=== PATIENT | female | born 1935 | race Caucasian/White ===

== ENCOUNTER 2017-04-07 10:05 | Inpatient (IN) | payer MEDICARE, BC ==
[2017-04-04 17:27] VITALS: BMI 24.6
[2017-04-07] VITALS (26 sets, daily range): BP systolic 99–151; BP diastolic 54–76; PULSE 64–83; RESP 14–22; Ht 162.6 cm; Wt 65.1 kg
[~2017-04-07] VITALS: Ht 162.6 cm; Wt 65.1 kg
--- NOTE | 2017-04-07 09:21 | HPN ---
Date/Time of Note Date/Time of Note DATE: 04/07/17 TIME: 09:21 Interval H&P Admission Note Pt. seen H&P reviewed: No system changes DENISE CHANEL MD Apr 07, 2017 09:21
[~2017-04-07 10:05] MED LIST: ATOR20TA65 PO; BENHCT2012 PO; BUPIVACAINE 0.5% (SDV) 30 ML, morphine SULFATE (PF) 8 MG, EPINEPHrine 0.3 MG, KETOROLAC... IRR SCH; CEFAZOLIN 2 GM/50 ML (PMX) 50 ML IVPB ONE; DEXAMETHASONE 1 MG TAB PO ONE; EST42.5C VAG; ESTR10TA VAGINAL; GABA300S PO; GABAPENTIN 300 MG CAP PO ONE; LIPA1CAP4 PO; NITR50CA38 PO; PANT40TA4 PO; TRANEXAMIC ACID 1,000 MG in SOD CHLORIDE 0.9% 100 ML IVPB ONE; ZOLP5TAB PO; traMADol 50 MG TAB PO ONE
[2017-04-07] MEDS ORDERED: DEXAMETHASONE 4 MG/ML 1 ML INJ ONE (10:34)
[2017-04-07] MEDS ORDERED: PROPOFOL 20 ML ONE (10:34)
[2017-04-07] MEDS ORDERED: MIDAZOLAM 1 MG/ML 2 ML INJ ONE (10:34)
[2017-04-07] MEDS ORDERED: GLYCOPYRROLATE 0.4 MG INJ ONE (10:34)
[2017-04-07] MEDS ORDERED: NEOSTIGMINE 3 MG/3 ML SYRINGE ONE (10:34)
[2017-04-07] MEDS ORDERED: CEFAZOLIN 1 GM INJ ONE (10:34)
[2017-04-07] MEDS ORDERED: ROCURONIUM 50 MG INJ ONE (10:34)
[2017-04-07] MEDS ORDERED: ONDANSETRON 4 MG INJ ONE (10:34)
[2017-04-07] MEDS ORDERED: FENTAnyl 50 MCG/ML VIAL ONE (10:34)
[2017-04-07] MEDS ORDERED: ROPIVACAINE 0.5 % 30 ML VIAL ONE (10:37)
[2017-04-07] MEDS ORDERED: GABA300C16 PO (11:02)
[2017-04-07] MEDS ORDERED: FER325 PO (11:03)
[2017-04-07] MEDS ORDERED: MULTI PO (11:03)
[2017-04-07] MEDS ORDERED: DOXY100T20 PO (11:06)
[2017-04-07] MEDS ORDERED: ASCO500C7 PO (11:07)
[2017-04-07] MEDS ORDERED: CALC1TAB79 PO (11:08)
[2017-04-07] MEDS ORDERED: CA CHLORIDE 10% 10 ML SYRINGE ONE (11:46)
[2017-04-07] MEDS ORDERED: BUPIVACAINE 0.5%/EPI (SDV) 30 ML INJ ONE (11:46)
[2017-04-07] MEDS ORDERED: THROMBIN 5000 UNIT VIAL ONE (11:46)
[2017-04-07] MEDS ORDERED: POLYMYXIN/BACITRACIN 1L IRRIG ONE (11:49)
[2017-04-07] MEDS ORDERED: SUGAMMADEX SODIUM 200 MG/2 ML VIAL IV ONE (13:56)
[2017-04-07] MEDS ORDERED: TRANEXAMIC ACID 1,000 MG in SOD CHLORIDE 0.9% 100 ML IV ONE (14:00)
[2017-04-07] MEDS ORDERED: ZOLPIDEM 5 MG TAB PO PRN (14:00)
[2017-04-07] MEDS ORDERED: MAGNESIUM HYDROXIDE 30ML CUP PO PRN (14:00)
[2017-04-07] MEDS ORDERED: morphine 4 MG/ML VIAL IV PRN (14:00)
[2017-04-07] MEDS ORDERED: OXYCODONE/ACETAMINOPHEN (5/325) TAB PO PRN (14:00)
[2017-04-07] MEDS ORDERED: DIPHENHYDRAMINE 50 MG INJ IV PRN (14:00)
[2017-04-07] MEDS ORDERED: ACETAMINOPHEN 500 MG TAB PO PRN (14:00)
[2017-04-07] MEDS ORDERED: morphine 2 MG INJ IV PRN (14:00)
[2017-04-07] MEDS ORDERED: ONDANSETRON 4 MG INJ IV PRN (14:00)
[2017-04-07] MEDS ORDERED: KETOROLAC 15 MG INJ IV PRN (14:00)
--- NOTE | 2017-04-07 14:00 | OPR ---
Date/Time of Note Date/Time of Note DATE: 04/07/17 TIME: 13:58 Operative Report Procedure Date: Apr 07, 2017 Preoperative Diagnosis Rotator cuff tear arthropathy left shoulder Postoperative Diagnosis 1. Secondary arthritis, left shoulder 2. Left shoulder massive, unrepairable rotator cuff tear Operation/Procedure Performed Left reverse total shoulder replacement Surgeon see signature line Family Services Specialist Toro Golden MD Anesthesia Type: general Estimated Blood Loss: 50 - 100 ml's Transfusion none Specimen None Grafts/Implants none Complications none Disposition: PACU Procedure Description SUPERVISOR WHIPPED TOPPING SURGEON: Toro Golden MD was asked to be present for this case at my request. Assistance was necessary as a result of the highly technical nature of this operation. When performing an open total shoulder replacement, it is critical to have a trained certified ophthalmic surgical assistant who is an expert in handling the extremity and assisting the surgeon in tasks such as manipulation of the arm, protection of the neurovascular structures and positioning the implants. This assistance cannot be performed by a lead technician, as it is considered an integral part of the procedure and the certified ophthalmic surgical assistant should be compensated for their time. PROCEDURE IN DETAIL: Following the administration of general anesthesia supplemented with a peripheral nerve block for postoperative pain control, the patient was examined under anesthesia. Examination of the left shoulder revealed very significant stiffness including a forward flexion of about 80 abduction 60 maximal external rotation 50 with severe crepitus. There was anteroposterior escape of the humeral head, also. The patient was then placed in the beach chair position. Sterile prep and drape was then undertaken. An extended deltopectoral incision was then carried through the interval exposing the conjoined tendon and retracting it medially. The subscapularis was noted to be partially disrupted superiorly. Severe arthritic changes were noted with very large peripheral osteophytes. The superior rotator cuff was torn and retracted. The biceps tendon was torn and retracted. A humeral head osteotomy was then created in the appropriate degree of version and inclination. The humerus was retracted and the glenoid was exposed. Peripheral osteophytes were removed and a complete capsulectomy performed. The central canal of the glenoid was then entered and prepared for a standard Depuy baseplate. A standard Depuy baseplate was then applied with four peripheral screws and solid fixation. A 38 mm glenosphere was then applied, with solid fixation. The humerus was then reamed and prepared for a 8 mm humeral component with a standard metaphyseal component. The actual components were implanted with solid fixation. The arm was taken through full range of motion with no evident instability. The joint was then thoroughly irrigated, the deep tissues were approximated using #1 suture followed by closure of the deep layer using 2-0 Monocryl. The skin was closed using 4-0 Monocryl suture, and a Prenio dressing. An Ultrasling was then applied. The patient was awakened and transported to the recovery room in stable condition. Estimated blood loss for this procedure was 75 cc. Radiographs will be obtained in the recovery room. DENISE CHANEL MD Apr 07, 2017 14:00
--- NOTE | 2017-04-07 14:01 | PDOCDIS ---
Discharge Instructions DIAGNOSIS Discharge Diagnosis Left shoulder cuff tear arthropathy CONDITION Patient Condition: Good HOME CARE INSTRUCTIONS: Diet Instructions: Regular ACTIVITY: Activity Restrictions: Slowly Increase Activity Keep Limb Elevated Bathing Restrictions: Shower FOLLOW UP/APPOINTMENTS Follow-up Plan 2 weeks in the office SCHOOL/WORK RELEASE May return to School/Work with: With Restrictions School/Work Release Comment: 5 pounds tabletop usage for 6 weeks DENISE CHANEL MD Apr 07, 2017 14:00
[2017-04-07] MEDS: CEFAZOLIN 1 GM/50 ML (PMX) 50 ML IVPB SCH ×2 (15:00→21:58)
--- NOTE | 2017-04-07 15:45 | RADRPT ---
PROCEDURE: XR Left Shoulder. CLINICAL INDICATION: Postoperative evaluation left shoulder TECHNIQUE: 2 views of the left shoulder are available for review. COMPARISON: None available FINDINGS: There is a left shoulder reverse total arthroplasty. Alignment is normal. There is soft tissue swelling and soft tissue gas. There is no acute fracture. Visualized left lung is clear. IMPRESSION: 1. Left shoulder reverse total arthroplasty in anatomic alignment. 2. Surrounding soft tissue swelling and gas. RPTAT: [facility]U .Toribio Horne MD, MD Date Time Electronically viewed and signed by .Toribio Horne MD, on 04/07/2017 15:45 .K/
[2017-04-07] MEDS ORDERED: PANTOPRAZOLE (EC) 40 MG TAB PO ONE (17:00)
[2017-04-07] MEDS: DEXAMETHASONE 2 MG TAB PO SCH ×2 (17:27→23:19)
[2017-04-07] MEDS: CREON (12k-38k-60k) 1 CAP PO SCH (17:27)
[2017-04-07] MEDS: SENNA/DOCUSATE NA (8.6MG/50MG) TAB PO SCH (20:35)
[2017-04-07] MEDS ORDERED: GABAPENTIN 300 MG CAP PO SCH ×2 (21:00)
[2017-04-08] MEDS: DEXAMETHASONE 2 MG TAB PO SCH ×2 (05:48→12:17)
[2017-04-08] MEDS: OXYCODONE/ACETAMINOPHEN (5/325) TAB PO PRN ×2 (05:48→12:20)
[2017-04-08] MEDS: CEFAZOLIN 1 GM/50 ML (PMX) 50 ML IVPB SCH (05:49)
--- NOTE | 2017-04-08 06:31 | DS ---
Date/Time of Note Date/Time of Note DATE: 04/08/17 TIME: 06:31 Discharge Summary Admission/Discharge Info Admit Date/Time Apr 07, 2017 at 10:05 Discharge Date/Time April 08, 2017 after occupational therapy Discharge Diagnosis Left shoulder cuff tear arthropathy Patient Condition: Good Hospital Course Patient's was admitted and underwent an uncomplicated procedure She will be discharged in the morning following occupational therapy. Home Meds Reported Medications Calcium Carbonate/Vitamin D3 (Oysco 500+D Tablet) 1 Each Tablet, 1 EACH PO BID, TAB 04/07/17 Ascorbic Acid* (Vitamin C*) 500 Mg Capsule.sa, 1000 MG PO DAILY, CAP 04/07/17 Doxycycline Hyclate* (Doxycycline Hyclate*) 100 Mg Tablet., 100 MG PO BID, TAB FOR 5 DAYS 04/07/17 Multivitamins* (Theragran*) 1 Tab Tab, 1 TAB PO DAILY, TAB 04/07/17 Ferrous Sulfate* (Ferrous Sulfate*) 325 Mg Tabec, 325 MG PO DAILY, TAB 04/07/17 Gabapentin* (Gabapentin*) 300 Mg Capsule, 300 MG PO QHS, #60 CAP 04/07/17 Jczlan-Nnjruqgl-Hpkrvcc* (Cheryl MENDOZA* 12,000) 12,000 L-38,000-60,000 Unit Capsule., 2 CAP PO WITH MEALS, CAP 04/04/17 Nitrofurantoin Macrocrystal* (Macrodantin*) 50 Mg Cap, 50 MG PO DAILY, CAP 04/04/17 Olmesartan-Hydrochlorothiazide (Benicar HCT) 20-12.5 Mg Tablet, 1 TAB PO DAILY, #90 04/04/17 Pantoprazole* (Pantoprazole*) 40 Mg Tablet., 40 MG PO DAILY, #90 04/04/17 Atorvastatin Calcium (Atorvastatin Calcium) 20 Mg Tablet, 20 MG PO DAILY, #90 04/04/17 Zolpidem Tartrate* (Ambien*) 5 Mg Tablet, 5 MG PO QHS Y for INSOMNIA, #30 TAB 09/25/15 Estradiol* (Estrace* Vag) 0.01%-42.5GM Vaginal Cream..g., 1 APPLIC VAG twice a week, TUB 09/25/15 Estradiol (Vagifem) 10 Mcg Tablet, 10 MCG VAGINAL DAILY, TAB 09/25/15 Discontinued Reported Medications Gabapentin (GABAPENTIN) 300 Mg/6 Ml Solution, 300 MG PO BEDTIME 04/04/17 Olmesartan Medoxomil (Benicar) 20 Mg Tablet, 20 MG PO DAILY, #30 TAB 09/25/15 Atorvastatin* (Atorvastatin*) 40 Mg Tablet, 20 MG PO QHS, #30 TAB 09/25/15 Pantoprazole* (Pantoprazole*) 20 Mg Tablet.dr, 20 MG PO DAILY, TAB 09/25/15 Follow-up Plan 2 weeks in the office Primary Care Provider Not On Staff Doctor DENISE CHANEL MD Apr 08, 2017 06:31
--- NOTE | 2017-04-08 06:31 | PN ---
Date/Time of Note Date/Time of Note DATE: 04/08/17 TIME: 06:30 24 hour Interval Summary She is doing well with no pain. Physical Exam Physical examination: She is neurologically intact. Her wound is well healed. She has no signs of DVT. Vital Signs Date Time Temp Pulse Resp B/P Pulse Ox O2 Delivery O2 Flow Rate FiO2 04/07/17 23:46 98.3 65 18 99/54 95 04/07/17 20:15 Nasal Cannula 2.0 Intake and Output 04/07/17 04/07/17 04/08/17 15:00 23:00 07:00 Intake Total 230 ml 100 ml 480 ml Output Total 50 ml 750 ml Balance 180 ml 100 ml -270 ml VTE Prophylaxis VTE Prophylaxis Intervention: SCD's Lines/Catheters IV Catheter Type: Saline Lock [place] in Place: No Assessment/Plan Assessment/Plan Assessment: Status post reverse total shoulder Plan: She will be discharged this morning after physical therapy followed up in 2 weeks Medications Medications Home Meds Reported Medications Calcium Carbonate/Vitamin D3 (Oysco 500+D Tablet) 1 Each Tablet, 1 EACH PO BID, TAB 04/07/17 Ascorbic Acid* (Vitamin C*) 500 Mg Capsule.sa, 1000 MG PO DAILY, CAP 04/07/17 Doxycycline Hyclate* (Doxycycline Hyclate*) 100 Mg Tablet.dr, 100 MG PO BID, TAB FOR 5 DAYS 04/07/17 Multivitamins* (Theragran*) 1 Tab Tab, 1 TAB PO DAILY, TAB 04/07/17 Ferrous Sulfate* (Ferrous Sulfate*) 325 Mg Tabec, 325 MG PO DAILY, TAB 04/07/17 Gabapentin* (Gabapentin*) 300 Mg Capsule, 300 MG PO QHS, #60 CAP 04/07/17 Edyyvi-Npfuxnvs-Jgrhvok* (Cheryl MENDOZA* 12,000) 12,000 L-38,000-60,000 Unit Capsule., 2 CAP PO WITH MEALS, CAP 04/04/17 Nitrofurantoin Macrocrystal* (Macrodantin*) 50 Mg Cap, 50 MG PO DAILY, CAP 04/04/17 Olmesartan-Hydrochlorothiazide (Benicar HCT) 20-12.5 Mg Tablet, 1 TAB PO DAILY, #90 04/04/17 Pantoprazole* (Pantoprazole*) 40 Mg Tablet., 40 MG PO DAILY, #90 04/04/17 Atorvastatin Calcium (Atorvastatin Calcium) 20 Mg Tablet, 20 MG PO DAILY, #90 04/04/17 Zolpidem Tartrate* (Ambien*) 5 Mg Tablet, 5 MG PO QHS Y for INSOMNIA, #30 TAB 09/25/15 Estradiol* (Estrace* Vag) 0.01%-42.5GM Vaginal Cream..g., 1 APPLIC VAG twice a week, TUB 09/25/15 Estradiol (Vagifem) 10 Mcg Tablet, 10 MCG VAGINAL DAILY, TAB 09/25/15 Discontinued Reported Medications Gabapentin (GABAPENTIN) 300 Mg/6 Ml Solution, 300 MG PO BEDTIME 04/04/17 Olmesartan Medoxomil (Benicar) 20 Mg Tablet, 20 MG PO DAILY, #30 TAB 09/25/15 Atorvastatin* (Atorvastatin*) 40 Mg Tablet, 20 MG PO QHS, #30 TAB 09/25/15 Pantoprazole* (Pantoprazole*) 20 Mg Tablet., 20 MG PO DAILY, TAB 09/25/15 DENISE CHANEL MD Apr 08, 2017 06:30
[2017-04-08 07:30] VITALS: BP 137/61; RESP 19
[2017-04-08] MEDS: CREON (12k-38k-60k) 1 CAP PO SCH ×2 (08:22→12:17)
[2017-04-08] MEDS: SENNA/DOCUSATE NA (8.6MG/50MG) TAB PO SCH (08:24)
[2017-04-08] MEDS ORDERED: LOSARTAN 50 MG TAB PO SCH (09:00)
[2017-04-08] MEDS ORDERED: PANTOPRAZOLE (EC) 40 MG TAB PO SCH (09:00)
[2017-04-08] MEDS ORDERED: HYDROCHLOROTHIAZIDE 12.5 MG CAP PO SCH (09:00)
[2017-04-08] MEDS ORDERED: ATORVASTATIN 20 MG TAB PO SCH (09:00)
[2017-04-08] MEDS ORDERED: ASPIRIN 81 MG TAB PO SCH (09:00)
[2017-04-11] MEDS ORDERED: ESTRADIOL 10 MCG XX SCH (09:00)
== END 2017-04-08 14:00 | disposition home or self-care (01) | DRG 483 ==
LOC: REC 10:05 → MS1 15:35
PROVIDERS: ADMIT Orthopaedic Surgery; ATTEND Orthopaedic Surgery
PROC: 0RRK00Z Replacement of Left Shoulder Joint with Reverse Ball and Socket Synthetic Substitute, Open Approach (ICD-10-PCS; principal; 2017-04-07 13:00)
DX: M19.212 Secondary osteoarthritis, left shoulder (principal); D64.9 Anemia, unspecified; I10 Essential (primary) hypertension; E78.5 Hyperlipidemia, unspecified; M75.102 Unspecified rotator cuff tear or rupture of left shoulder, not specified as traumatic; M47.22 Other spondylosis with radiculopathy, cervical region; K21.9 Gastro-esophageal reflux disease without esophagitis
CPT/HCPCS: 73030; 86999; 88304; 88311; 97110; 97165; 97535; C1776; J0171; J0690; J0735; J1100; J1885; J2250; J2274; J2405; J2710; J2795; J3010; J3370